=== PATIENT | male | born 1965 | race Caucasian/White ===

== ENCOUNTER → 2016-06-20 | Outpatient (CLI) | payer MEDICARE, OTHER ==
[~2016-06-20] MED LIST: AMBIEN10 MG PO; APRESOLINE10 MG IVP; APRESOLINE25 MG PO; ASPIRIN EC81 MG PO; ATIVAN 0.5MG0.5 MG PO; AUGMENTIN 875-1 EACH PO; CARDURA4 MG PO; COREG6.25 MG PO; COZAAR100 MG PO; DEXTROSE 50%50 ML IVP; DOXYCYCLINE100 MG PO; ELIQUIS2.5 MG PO; FLORASTOR250 MG PO; FLUZONE QU IM; GLUCAGON 1 MG PE1 MG SUB-Q; GLUCAGON/GLUCAGE1 MG SUB-Q; GLUCOSE1 EACH PO; GLUCOSE4 GM PO; HEPARIN5000 UNIT/ SUB-Q; HUMULIN N100 UNIT/2 SUB-Q; ISOSORBIDE DINI20 MG PO; LEVOTHROID (S150 MCG PO; LEXAPRO10 MG PO; LEXAPRO20 MG PO; LIDOCAINE 1% MD20 M1 IDER; LIPITOR80 MG PO; NEURONTIN100 MG PO; NEXIUM40 MG PO; NORCO 5-325 TA1 EACH PO; NOVOLOG FL100 UNIT/1 SUB-Q; NOVOLOG100 UNIT/1; NOVOLOG100 UNIT/M SUB-Q; PENCICLOVIR 1% TOP; PROTONIX40 MG PO; SENSIPAR 30 MG30 MG PO; THERA-VITE W/ B1 TAB PO; TYLENOL325 MG PO; VELPHORO500 MG PO; VOLTAREN 1% GE100 GM TOP; ZOFRAN2 MG/1 ML IVP; ZOFRAN4 MG PO; ZOSYN3.375 G1 IV; ZOVIRAX200 MG PO
[2016-06-20 13:55] LABS: INR - (THERAPEUTIC) 0.95 (0.92-1.07)
== END | disposition disaster alternative care site (69) ==
LOC: LGSMG 13:44
PROVIDERS: Internal Medicine Nephrology
DX: Z01.818 Encounter for other preprocedural examination (principal)

== ENCOUNTER 2016-06-21 08:45 | Day surgery (SDC) | payer MEDICARE, OTHER ==
[~2016-06-21] VITALS: Ht 182.9 cm; Wt 106.5 kg
--- NOTE | ~2016-06-21 | OR ---
PATIENT'S NAME: OZ GUTIÉRREZ [facility] AGE: 50 Y [address] ROOM: [place] [address] LOCATION: [facility] ADMIT DATE: 06/21/2016 OR/Procedure Report DISCHARGE DATE: 06/21/2016 FAMILY PHYSICIAN: Jose Alfredo Barrera MD ATTENDING PHYSICIAN: Win Beltran SURGEON: Win Beltran MD NETWORKING TECHNOLOGY INSTRUCTOR: Alberto Davis PA-C DATE OF PROCEDURE: 06/21/2016 PREOPERATIVE DIAGNOSES: 1. Right shortened Achilles tendon/gastrocnemius equinus. 2. Right fifth metatarsal Lucio fracture. 3. Right fourth metatarsal base fracture. POSTOPERATIVE DIAGNOSES: 1. Right shortened Achilles tendon/gastrocnemius equinus. 2. Right fifth metatarsal Lucio fracture. 3. Right fourth metatarsal base fracture. PROCEDURES PERFORMED: 1. Open reduction and internal fixation of right fifth metatarsal Lucio fracture. 2. Gastrocnemius recession procedure, right leg. 3. Use of intraoperative fluoroscopy, less than one hour. 4. Placement of short-leg splint intraoperatively. ANESTHESIA: General endotracheal anesthesia. FLUIDS: See Anesthesia report. ESTIMATED BLOOD LOSS: Minimal. TOURNIQUET: Right proximal thigh, 250 mmHg. SPECIMENS: None. COMPLICATIONS: None. DISPOSITION: Stable, in PACU. IMPLANTS: [place] 6 mm partially threaded solid titanium screw for fixation of the right fifth metatarsal Lucio fracture. COUNT: All counts were correct. PATIENT'S NAME: OZ GUTIÉRREZ [facility] AGE: 50 Y [address] ROOM: [place] [address] LOCATION: [facility] ADMIT DATE: 06/21/2016 OR/Procedure Report DISCHARGE DATE: 06/21/2016 FAMILY PHYSICIAN: Jose Alfredo Barrera MD ATTENDING PHYSICIAN: Win Beltran INDICATIONS: Mr. Gutiérrez is a pleasant, 50-year-old diabetic with peripheral neuropathy who underwent the noted procedures above. The risks, benefits, and alternatives to pursuing surgical intervention were discussed in detail. The patient elected to proceed with surgery as noted above. I marked the right lower extremity, indicating the correct surgical site. Anesthesia was consulted for their perioperative evaluation of the patient. DESCRIPTION OF PROCEDURE: The patient was taken from the holding area to the operating room. A time-out was performed. General endotracheal anesthesia was administered. The right lower extremity was then prepped and draped in a sterile fashion. An Esmarch was used to exsanguinate the limb and the tourniquet inflated to 250 mmHg. I turned my attention to the medial aspect of the leg. I made a longitudinal surgical incision through skin and subcutaneous tissue down through fascia to the gastrocnemius aponeurosis at the medial aspect of the leg for my gastrocnemius recession procedure. I achieved good excursion of the gastrocnemius aponeurosis and improved ankle dorsiflexion after the procedure was performed. The wound was then copiously irrigated with a normal sterile saline solution and closed in layers. I then introduced intraoperative fluoroscopy. I took an image of the right foot. There was evidence of a right displaced fifth metatarsal Lucio fracture as well as a comminuted base of the fourth metatarsal fracture. I began with a pin and introduced the wire into the fifth metatarsal. I made a surgical incision at the base of the fifth metatarsal through skin and subcutaneous tissue. I retracted the peroneal tendons out of the way. I then confirmed the position of the pin in the high and inside position. I then subsequently measured the length of the pin for the screw later on. I subsequently drilled, tapped, and placed a 50 mm long screw into the fifth metatarsal, fixating the Lucio fracture. Final fluoroscopic image of the right foot revealed a near anatomic open reduction and internal fixation of the right fifth metatarsal Lucio fracture with hardware in place. The wound was then copiously irrigated and closed in layers. The patient was then placed into a well-padded short-leg splint with the ankle in neutral dorsiflexion. The patient was then transferred from the operating table onto the stretcher and extubated. He was brought to the recovery room in stable condition. PATIENT'S NAME: OZ GUTIÉRREZ [facility] AGE: 50 Y [address] ROOM: [address] [address] LOCATION: [facility] ADMIT DATE: 06/21/2016 OR/Procedure Report DISCHARGE DATE: 06/21/2016 FAMILY PHYSICIAN: Jose Alfredo Barrera MD ATTENDING PHYSICIAN: Win Beltran There were no intraoperative complications noted. Of note, my PA, Alberto Davis PA-C, played an integral role in the intraoperative care of this patient. This included preoperative positioning, intraoperative expert retraction, and closing and splinting functions. IMPRESSION: The patient is status post the noted procedures above. PLAN: The patient will be nonweightbearing on the right lower extremity in a splint. He will be encouraged to rest, ice, and elevate the extremity going forward. Postoperative pain control will be in the form of Percocet and IV morphine as needed for pain. He is getting Eliquis for DVT prophylaxis. He will be discharged home from the PACU provided he meets PACU discharge criteria. He will follow up with me in the office in 2 weeks for his first postoperative visit. MD JOSE BARAHOAN/javier /[id number] d: 06/21/16 1824 t: 06/22/16 0831, OPERATIVE SUMMARY
[2016-06-21 12:09] LABS: POTASSIUM 4.6 mEq/L (3.7-5.1)
[2016-06-21] MEDS ORDERED: NORCO 5-325 TA1 EACH PO (14:32)
== END 2016-06-21 16:15 | disposition disaster alternative care site (69) ==
LOC: G3N 08:45 → GSDC 08:45 → GPOC 13:00 → GSDC 16:15
PROVIDERS: Nurse Anesthetist, Certified Registered
PROC: 0QSN04Z Reposition Right Metatarsal with Internal Fixation Device, Open Approach (ICD-10-PCS; principal; 2016-06-21)
PROC: 0L8N0ZZ Division of Right Lower Leg Tendon, Open Approach (ICD-10-PCS; 2016-06-21)
DX: M21.6X1 Other acquired deformities of right foot (principal); S92.351A Displaced fracture of fifth metatarsal bone, right foot, initial encounter for closed fracture; S92.341A Displaced fracture of fourth metatarsal bone, right foot, initial encounter for closed fracture; E10.22 Type 1 diabetes mellitus with diabetic chronic kidney disease; I12.0 Hypertensive chronic kidney disease with stage 5 chronic kidney disease or end stage renal disease; N18.6 End stage renal disease; F41.9 Anxiety disorder, unspecified; J45.901 Unspecified asthma with (acute) exacerbation; M17.11 Unilateral primary osteoarthritis, right knee; I42.9 Cardiomyopathy, unspecified; I25.810 Atherosclerosis of coronary artery bypass graft(s) without angina pectoris; F32.9 Major depressive disorder, single episode, unspecified; E11.21 Type 2 diabetes mellitus with diabetic nephropathy; Z79.4 Long term (current) use of insulin; E11.42 Type 2 diabetes mellitus with diabetic polyneuropathy; E78.5 Hyperlipidemia, unspecified; E21.3 Hyperparathyroidism, unspecified; E03.9 Hypothyroidism, unspecified; Z88.1 Allergy status to other antibiotic agents; Z99.2 Dependence on renal dialysis; Z88.5 Allergy status to narcotic agent; Z88.8 Allergy status to other drugs, medicaments and biological substances; Z79.899 Other long term (current) drug therapy; Z98.890 Other specified postprocedural states
CPT/HCPCS: C1713; J0690; J7030

== ENCOUNTER → 2016-10-23 | Outpatient (CLI) | payer MEDICARE, OTHER | END | disposition disaster alternative care site (69) | LOC: GRAD 15:42 | DX: R42 Dizziness and giddiness (principal); I65.23 Occlusion and stenosis of bilateral carotid arteries | CPT/HCPCS: Q9967 ==